=== PATIENT | female | born 1970 | race Two or more races ===

== ENCOUNTER 2020-10-18 15:41 | Outpatient (REF) | payer OTHER, SELFPAY ==
[2020-10-18 16:45] LABS: TSH reflex Free T4 3.16 mIU/mL (0.32-4.0)
== END 2020-10-18 15:42 | disposition home or self-care (01) ==
LOC: HO.LAB 15:41
PROVIDERS: PCP Internal Medicine; Visit Provider Internal Medicine
DX: R63.4 Abnormal weight loss (principal)
CPT/HCPCS: 84443

== ENCOUNTER 2020-10-28 18:02 | Outpatient (REF) | payer OTHER, SELFPAY | END 2020-10-28 18:03 | disposition home or self-care (01) | LOC: HO.MRI 18:02 | PROVIDERS: Visit Provider Internal Medicine | DX: Z13.89 Encounter for screening for other disorder (principal) ==

== ENCOUNTER → 2020-11-12 08:12 | Outpatient (BNVA) | payer OTHER, SELFPAY | PROVIDERS: PCP Internal Medicine; Visit Provider Physician Assistant | DX: Z76.89 Persons encountering health services in other specified circumstances (principal) ==

== ENCOUNTER → 2020-12-11 10:24 | Outpatient (BNVA) | payer OTHER, SELFPAY | PROVIDERS: PCP Internal Medicine; Visit Provider Hospitalist ==

== ENCOUNTER 2020-12-26 14:26 | Outpatient (REF) | payer OTHER, SELFPAY | END 2020-12-26 14:27 | disposition home or self-care (01) | LOC: HO.MDS 14:26 | PROVIDERS: PCP Internal Medicine; Visit Provider Hospitalist | DX: J45.50 Severe persistent asthma, uncomplicated (principal) | CPT/HCPCS: 96372; J0517 ==

== ENCOUNTER → 2021-01-17 15:00 | Outpatient (BNVA) | payer OTHER, SELFPAY | PROVIDERS: PCP Internal Medicine; Visit Provider Hospitalist ==

== ENCOUNTER 2021-01-23 13:59 | Outpatient (REF) | payer OTHER, SELFPAY | END 2021-01-23 14:00 | disposition home or self-care (01) | LOC: HO.MDS 13:59 | PROVIDERS: PCP Internal Medicine; Visit Provider Hospitalist | DX: J45.50 Severe persistent asthma, uncomplicated (principal) | CPT/HCPCS: 96372; J0517 ==

== ENCOUNTER 2021-02-11 13:01 | Emergency (ER) | payer OTHER, SELFPAY ==
--- NOTE | ~2021-02-11 | US_ITS ---
EXAMINATION: US VENOUS ULTRASOUND WITH DOPPLER LOWER EXTREMITY, BILATERAL CLINICAL INFORMATION: Bilateral lower extremity pain COMPARISON: Right leg DVT study 05/12/2018 TECHNIQUE: Ultrasound of the deep veins is performed from the hip to the calf with compression sonography and color and pulse Doppler assessment. Spectral analysis with color-flow imaging is performed. FINDINGS: RIGHT: There is normal venous compression and respiratory variation and augmented flow. The visualized common femoral vein, superficial femoral vein, profunda femoral vein, popliteal vein, and the trifurcation region shows no evidence of deep venous thrombosis. There is no significant popliteal fossa cyst. LEFT: There is normal venous compression and respiratory variation and augmented flow. The visualized common femoral vein, superficial femoral vein, profunda femoral vein, popliteal vein, and the trifurcation region shows no evidence of deep venous thrombosis. There is no significant popliteal fossa cyst. If the patient's symptoms persist, followup ultrasound in 5 days 7 days might be of value to exclude proximal propagation from a non-visualized calf vein. US/US venous duplex LE BI IMPRESSION: No DVT demonstrated in either lower extremity.
[2021-02-11 13:38] VITALS: BP 158/81; PULSE 70; RESP 16; TEMP 37; O2SAT 99; BMI 42.0
--- NOTE | 2021-02-11 17:08 | ED_ITS ---
HPI - General Adult General Chief complaint: General Medical Stated complaint: QUES ALLERGIC REACTION Source: patient Mode of arrival: ambulatory Limitations: no limitations History of Present Illness HPI narrative: Patient presents to ED for body aches/turning aches since receiving the COVID vaccine 6 days ago. Patient states she received a Guillermo Guillermo vaccine. Patient then states the past 2 days she started having left calf pain so patient was sent to the ED for referral. Patient denies any chest pain, shortness of breath, coughing up blood, swelling of lower extremity, or dizziness. Related Data Home Medications Medication Instructions Recorded Confirmed albuterol sulfate 90 mcg/actuation 2 puff INHALATION Q6H PRN 09/05/20 01/06/21 aerosol inhaler fluticasone 100 mcg-salmeterol 50 1 inh INHALATION BID 09/05/20 01/06/21 mcg/dose blistr powdr for inhalation montelukast 10 mg tablet 10 mg PO DAILY 09/05/20 01/17/21 omeprazole 20 mg capsule,delayed 20 mg PO DAILY 09/05/20 01/17/21 release cetirizine 10 mg tablet 10 mg PO DAILY 09/25/20 01/17/21 epinephrine 0.3 mg/0.3 mL IM DIRECTED 09/25/20 01/17/21 injection, auto-injector ipratropium 20 mcg-albuterol 100 1 puff INHALATION Q6H 09/25/20 01/17/21 mcg/actuation mist for inhalation citalopram 40 mg tablet 40 mg PO DAILY 10/10/20 01/17/21 pseudoephedrine HCl 30 mg tablet mg PO 10/10/20 01/17/21 lisinopril 5 mg tablet 5 mg PO DAILY 11/05/20 01/17/21 flu vacc [id number] 6mos up(PF) ml IM 12/11/20 01/17/21 progesterone micronized 200 mg mg PO 12/11/20 01/06/21 capsule Previous Rx's Medication Instructions Recorded benralizumab 30 mg/mL subcutaneous 30 mg SUBCUT Q8W #1 ml 08/06/20 syringe gabapentin 300 mg capsule 300 mg PO BEDTIME 30 Days #30 cap 09/25/20 valacyclovir 1 gram tablet 1,000 mg PO TID 10 Days #30 tab 09/25/20 ascorbate calcium (vitamin C) 500 500 mg PO DAILY 30 Days #30 tab 10/10/20 mg tablet ferrous sulfate 325 mg (65 mg 325 mg PO DAILY 30 Days #30 tab 10/10/20 iron) tablet,delayed release amoxicillin 500 mg tablet 500 mg PO BID 7 Days #14 tab 10/14/20 doxycycline hyclate 100 mg 100 mg PO BID 5 Days #10 tab 10/14/20 tablet,delayed release albuterol sulfate 90 mcg/actuation 2 inh INHALATION Q6H PRN 30 Days 10/29/20 breath activated powder inhaler #1 ea fluticasone 250 mcg-salmeterol 50 1 inh INHALATION Q12H 30 Days #60 10/29/20 mcg/dose blistr powdr for ea inhalation triamcinolone acetonide 0.1 % 1 appl TOPICAL BID 14 Days #30 g 11/04/20 topical cream acetaminophen 300 mg-codeine 30 mg 1 tab PO Q6H PRN 30 Days #120 tab 11/06/20 tablet pramipexole 0.125 mg tablet 0.125 mg PO BEDTIME #30 tab 11/06/20 bisacodyl 5 mg tablet,delayed 5 mg PO ONCE 1 Days #2 tab 11/11/20 release oxybutynin chloride 5 mg tablet 5 mg PO BID #60 tab 11/11/20 varicella-zoster glycoE [id number] 0.5 ml IM ONCE 1 Days #1 ea 11/20/20 adj(PF) 50 mcg/0.5 mL IM susp, kit tizanidine 4 mg tablet 4 mg PO TID PRN 90 Days #270 tab 11/21/20 fluticasone 500 mcg-salmeterol 50 1 inh INHALATION Q12H 30 Days #60 12/11/20 mcg/dose blistr powdr for ea inhalation tiotropium bromide 2.5 2 puff INHALATION BEDTIME 30 Days 12/11/20 mcg/actuation mist for inhalation #4 g fluticasone propionate 50 1 spray INTRANASAL DAILY #16 ml 12/17/20 mcg/actuation nasal spray,suspension alprazolam 1 mg tablet 1 mg PO BID PRN 28 Days #56 tab 01/06/21 prednisone 5 mg tablet 5 mg PO BID 30 Days #60 tab 01/06/21 azithromycin 500 mg tablet 500 mg PO DAILY 3 Days #3 tab 01/17/21 dextromethorphan-guaifenesin 5 10 ml PO Q6H PRN 14 Days #355 ml 01/17/21 mg-100 mg/5 mL oral liquid prednisone 20 mg tablet 20 mg PO DAILY 10 Days #10 tab 01/17/21 lisinopril 5 mg tablet 5 mg PO DAILY #30 tab 01/24/21 Allergies Allergy/AdvReac Type Severity Reaction Status Date / Time tramadol [TRAMADOL] Allergy Intermediate ITCHINESS, Verified 01/17/21 15:08 pruritus fentanyl Allergy Unknown unknown Verified 01/17/21 15:08 ketamine Allergy Unknown weakness Verified 01/17/21 15:08 nut - unspecified [nut] Allergy Unknown SWELLING/RA Verified 01/17/21 15:08 SH propofol Allergy Unknown weakness Verified 01/17/21 15:08 rocuronium Allergy Unknown weakness Verified 01/17/21 15:08 ibuprofen AdvReac Unknown upset Verified 01/23/21 14:03 stomach ketorolac AdvReac Unknown nauseas,vomiting, Verified 01/23/21 14:03 nausea, vomiting dust, pollens, grass Allergy Unknown asthma Uncoded 01/17/21 15:08 SEASONAL ALLERGIES Allergy Unknown ITCHY EYES Uncoded 01/17/21 15:08 From TORADOL AdvReac Unknown PALPITAIONS Uncoded 01/17/21 15:08 Review of Systems Review of Systems: Yes all other systems are reviewed and are negative Constitutional: Constitutional: Reports as per HPI, Reports no additional constitutional complaints, Reports body ache(s) and Reports headache(s) Eyes: Eyes: Reports as per HPI and Reports no additional eye complaints ENT: Reports system reviewed and no additional complaints, except as documented, Reports as per HPI and Reports headache(s) Cardiovascular: Cardiovascular: Reports as per HPI and Reports no additional cardiovascular complaints Respiratory: Respiratory: Reports as per HPI and Reports no additional respiratory complaints Gastrointestinal: Gastrointestinal: Reports as per HPI and Reports no additional gastrointestinal complaints Genitourinary: Genitourinary: Reports no additional female genitourinary complaints and Reports as per HPI Musculoskeletal: Musculoskeletal: Reports no additional musculoskeletal complaints and Reports as per HPI Comments: Left calf pain Neurologic: Reports system reviewed and no additional complaints, except as documented, Reports as per HPI and Reports headache(s) Psychiatric: Psychiatric: Reports no additional psychiatric complaints and Reports as per HPI PMFSH Past Medical History Medical History Asthma Chronic allergic rhinitis Depression with anxiety Essential hypertension GERD (gastroesophageal reflux disease) Herpes zoster Lumbar degenerative disc disease Migraines Postherpetic neuralgia Rash Restless leg syndrome Screen for colon cancer Unexplained weight loss Urge urinary incontinence Surgical History H/O tubal ligation Family History Family History Father Diabetes Mother Hypertension Maternal Grandfather Prostate cancer Paternal Aunt Cancer Family/Other FH: mental illness Social History Social History Alcohol intake: never Smoking Status: Never smoker Use of substances other than those prescribed or required for medical reasons: No Advance Directives: No Advance Directives Information Provided: No Current occupational status: unemployed Physical Exam Vital Signs: Vital Signs: Last Vital Signs Temp 98.6 F 02/11/21 13:38 Pulse 65 02/11/21 17:46 Resp 16 02/11/21 17:46 BP 156/103 H 02/11/21 17:46 Pulse Ox 100 02/11/21 17:46 Body Mass Index 42.0 Const: General: cooperative, healthy appearing, comfortable, no acute distress, well developed, alert and awake Orientation/consciousness: patient oriented x3 HENMT: Head: Yes normal to inspection, Yes No palpable skull fracture present, Yes normocephalic and Yes atraumatic Eyes: General: appearance normal, both eyes and all related structures Neck: Neck: Yes normal visual inspection, Yes full ROM, Yes no lymphadenopathy, Yes no meningeal signs, Yes trachea midline, Yes supple and No tender Chest: Chest palpation & inspection: normal inspection of the chest and normal palpation of entire chest wall Resp: Effort & Inspection: normal respiratory effort and able to speak in complete sentences Cardio: Jugular venous distension: no JVD Heart sounds: S1 normal heart sound present and S2 normal heart sound present GI: Inspection: Yes normal to inspection and No abdominal wall ecchymosis Palpation (GI): Soft to palpation, not firm, nontender, no guarding and not rigid : General: No CVA tenderness and Yes no CVA tenderness Back/Spine/Pelvis: Back: no CVA tenderness, No CVA tenderness and No back tenderness Skin: Other: Negative for any ecchymosis or petechia General skin exam: no rashes or lesions noted and elasticity normal Neuro: General: patient oriented x3, no meningeal signs and CN's II-XI intact bilaterally Cranial nerves: Yes CN's II-XII intact bilaterally Extrem: Other: Lower extremities bilaterally: Negative for any redness, swelling, calf tenderness, ecchymosis, or crepitus. Vascular/neuro/motor exam intact of lower extremities intact. General: Yes normal to inspection and Yes full ROM Psych: Appearance: grossly normal, well kempt and not disheveled Course Course Course Narrative: Due to patient stating calf pain and recent JJ vaccination done 6 days ago. Patient will be sent for ultrasound to rule out DVT of lower extremities. Nurse already ordered basic labs. Physical exam does not indicate signs of meningitis. Reevaluation(s) Reevaluation #1: Patient labs came back normal. Bilateral ultrasound on lower extremity came back negative for DVT. Patient is safe for discharge. Medical Decision Making MDM Narrative Medical decision making narrative: Myalgia due to vaccination Lab Data Result diagrams: 02/11/21 17:02 02/11/21 17:02 Labs: Lab Results 02/11/21 02/11/21 02/11/21 Range/Units 17:02 17:02 17:02 WBC 5.2 (4.8-10.8) X10*3/uL RBC 4.55 (4.20-5.50) X10*6/uL Hgb 13.2 (12.0-16.0) g/dl Hct 41.4 (37-47) % MCV 91.0 (80-98) fL MCH 29.0 (27.0-33.0) pg MCHC 31.9 (31.0-35.0) g/dl RDW 11.9 (11.0-16.0) % Plt Count 266 (160-400) X10*3/uL MPV 12.2 (9.4-12.3) fL Absolute Nucleated RBC 0.000 (0.0-0.012) X10*3/uL Nucleated RBC % (auto) 0.0 (0.0-0.2) /100WBC Hold Purple Top D-Dimer < 200 NG/ML Hold Blue Top Sodium 138 (135-145) mmol/L Potassium 4.2 (3.3-5.1) mmol/L Chloride 103 (96-108) mmol/L Carbon Dioxide 26 (22-29) mmol/L Anion Gap 13 (12-20) BUN 21 H (9-16) mg/dL Creatinine 0.83 (0.5-1.4) mg/dL Estim Creat Clear Calc 91.9 Estimated GFR > 60 Random Glucose 110 (60-115) mg/dL Calcium 9.7 (8.4-10.2) mg/dL COVID-19 ([facility]) (Negative) COVID-19 [employer] 02/11/21 02/11/21 02/11/21 Range/Units 17:02 17:02 19:30 WBC (4.8-10.8) X10*3/uL RBC (4.20-5.50) X10*6/uL Hgb (12.0-16.0) g/dl Hct (37-47) % MCV (80-98) fL MCH (27.0-33.0) pg MCHC (31.0-35.0) g/dl RDW (11.0-16.0) % Plt Count (160-400) X10*3/uL MPV (9.4-12.3) fL Absolute Nucleated RBC (0.0-0.012) X10*3/uL Nucleated RBC % (auto) (0.0-0.2) /100WBC Hold Purple Top SEE NOTE D-Dimer NG/ML Hold Blue Top SEE NOTE Sodium (135-145) mmol/L Potassium (3.3-5.1) mmol/L Chloride (96-108) mmol/L Carbon Dioxide (22-29) mmol/L Anion Gap (12-20) BUN (9-16) mg/dL Creatinine (0.5-1.4) mg/dL Estim Creat Clear Calc Estimated GFR Random Glucose (60-115) mg/dL Calcium (8.4-10.2) mg/dL COVID-19 ([facility]) Negative (Negative) COVID-19 Clin Com See Note Discharge Plan Discharge Clinical Impression: Myalgia after COVID-19 vaccination Patient Disposition: Home, Self-Care Instructions: Musculoskeletal Pain (ED) Additional Instructions: Return return to the ED immediately for any swelling of lips, sensation of throat closing, shortness of breath, chest pain, swelling of lower extremities, calf pain, coughing up blood, weakness, passing out, dizziness, fever, or chills. Your blood work came back normal. Ultrasound came back negative for any blood clots in either leg. Ultrasound came back negative for blood clots. Labs came back normal Prescriptions: No Action Fasenra 30 mg/mL syringe 30 mg subcut Q8W Qty: 1 RF: 0 amoxicillin 500 mg tablet 500 mg PO BID 7 Days Qty: 14 RF: 0 ProAir RespiClick 90 mcg/actuation aerosol powdr breath activated 2 inh inhalation Q6H PRN (Reason: shortness of breath or wheezing) 30 Days Qty: 1 RF: 11 fluticasone propion-salmeterol [Advair Diskus] 250-50 mcg/dose blister with device 1 inh inhalation Q12H 30 Days Qty: 60 RF: 11 triamcinolone acetonide 0.1 % cream 1 appl topical BID 14 Days Qty: 30 RF: 5 lisinopril 5 mg tablet 5 mg PO DAILY RF: 0 pramipexole 0.125 mg tablet 0.125 mg PO BEDTIME Qty: 30 RF: 6 acetaminophen-codeine 300-30 mg tablet 1 tab PO Q6H PRN (Reason: pain) 30 Days Qty: 120 RF: 0 oxybutynin chloride 5 mg tablet 5 mg PO BID Qty: 60 RF: 3 Shingrix (PF) 50 mcg/0.5 mL suspension for reconstitution 0.5 ml IM ONCE 1 Days Qty: 1 RF: 0 tizanidine 4 mg tablet 4 mg PO TID PRN (Reason: muscle spasticity) 90 Days Qty: 270 RF: 1 fluticasone propionate 50 mcg/actuation spray,suspension 1 spray intranasal DAILY Qty: 16 RF: 6 lisinopril 5 mg tablet 5 mg PO DAILY Qty: 30 RF: 6 doxycycline hyclate 100 mg tablet,delayed release (DR/EC) 100 mg PO BID 5 Days Qty: 10 RF: 0 cetirizine 10 mg tablet 10 mg PO DAILY RF: 0 epinephrine 0.3 mg/0.3 mL auto-injector IM DIRECTED RF: 0 Combivent Respimat 20-100 mcg/actuation mist 1 puff inhalation Q6H RF: 0 valacyclovir 1 gram tablet 1,000 mg PO TID 10 Days Qty: 30 RF: 0 gabapentin 300 mg capsule 300 mg PO BEDTIME 30 Days Qty: 30 RF: 6 citalopram 40 mg tablet 40 mg PO DAILY RF: 0 pseudoephedrine HCl 30 mg tablet PO RF: 0 ascorbate calcium (vitamin C) 500 mg tablet 500 mg PO DAILY 30 Days Qty: 30 RF: 4 ferrous sulfate 325 mg (65 mg iron) tablet,delayed release (DR/EC) 325 mg PO DAILY 30 Days Qty: 30 RF: 3 alprazolam 1 mg tablet 1 mg PO BID PRN (Reason: anxiety) 28 Days Qty: 56 RF: 0 prednisone 5 mg tablet 5 mg PO BID 30 Days Qty: 60 RF: 1 albuterol sulfate [Ventolin HFA] 90 mcg/actuation HFA aerosol inhaler 2 puff inhalation Q6H PRNRF: 0 fluticasone propion-salmeterol [Wixela Inhub] 100-50 mcg/dose blister with device 1 inh inhalation BID RF: 0 montelukast [Singulair] 10 mg tablet 10 mg PO DAILY RF: 0 omeprazole 20 mg capsule,delayed release(DR/EC) 20 mg PO DAILY RF: 0 Fluzone Quad (PF) 60 mcg (15 mcg x 4)/0.5 mL syringe IM RF: 0 progesterone micronized 200 mg capsule PO RF: 0 fluticasone propion-salmeterol [Advair Diskus] 500-50 mcg/dose blister with device 1 inh inhalation Q12H 30 Days Qty: 60 RF: 11 Spiriva Respimat 2.5 mcg/actuation mist 2 puff inhalation BEDTIME 30 Days Qty: 4 RF: 11 bisacodyl [Dulcolax (bisacodyl)] 5 mg tablet,delayed release (DR/EC) 5 mg PO ONCE 1 Days Qty: 2 RF: 0 prednisone 20 mg tablet 20 mg PO DAILY 10 Days Qty: 10 RF: 0 azithromycin 500 mg tablet 500 mg PO DAILY 3 Days Qty: 3 RF: 0 Robitussin Cough-Chest Qamar DM 5-100 mg/5 mL liquid 10 ml PO Q6H PRN (Reason: cough) 14 Days Qty: 355 RF: 3 Referrals: Maricarmen Hammonds MD [Primary Care Provider] - 2 days (Ultrasound negative for blood clots of lower extremities. Labs are normal.) Interventions: ED Discharge Assessment Last Done: 02/11/21 20:24 Discharge Date/Time: 02/11/21 20:24 Print Language: Somali
[2021-02-11 17:18] LABS: Hematocrit 41.4 % (37-47); Hemoglobin 13.2 g/dl (12.0-16.0); Mean Corpuscular HGB Conc 31.9 g/dl (31.0-35.0); Mean Platelet Volume 12.2 fL (9.4-12.3); Platelet Count 266 X10*3/uL (160-400); Red Blood Count 4.55 X10*6/uL (4.20-5.50); Red Cell Distribution Width 11.9 % (11.0-16.0); White Blood Count 5.2 X10*3/uL (4.8-10.8)
[2021-02-11 17:31] LABS: D Dimer < 200 NG/ML
--- NOTE | 2021-02-11 17:32 | PC.NURSE ---
unlabored resp. skin pwd. no swelling or tenderness noted LLE. no redness. pt denies hx smoking, OBC, or prolonged sedentary position. aware of plan for u/s
[2021-02-11 17:34] LABS: Anion Gap 13 (12-20); Blood Urea Nitrogen 21 mg/dL (9-16); Calcium 9.7 mg/dL (8.4-10.2); Carbon Dioxide 26 mmol/L (22-29); Chloride 103 mmol/L (96-108); Creatinine Clr Calc Pharmacy 91.9; Estimated Glomerular Filt Rate > 60; Glucose Random 110 mg/dL (60-115); Potassium 4.2 mmol/L (3.3-5.1); Sodium 138 mmol/L (135-145)
[2021-02-11 17:46] VITALS: BP 156/103; PULSE 65; RESP 16; O2SAT 100
[2021-02-11 20:06] LABS: COVID-19 Test Negative (Negative)
== END 2021-02-11 20:24 | disposition home or self-care (01) ==
PROVIDERS: Physician Assistant; Emergency Provider Emergency Medicine; PCP Internal Medicine
DX: M79.662 Pain in left lower leg (principal); M79.10 Myalgia, unspecified site; T50.B95A Adverse effect of other viral vaccines, initial encounter; Y92.019 Unspecified place in single-family (private) house as the place of occurrence of the external cause; Z20.822 Contact with and (suspected) exposure to COVID-19
CPT/HCPCS: 36415; 80048; 85027; 85379; 87635; 93970; 99284

== ENCOUNTER 2021-02-20 13:12 | Outpatient (REF) | payer OTHER, SELFPAY | END 2021-02-20 13:13 | disposition home or self-care (01) | LOC: HO.MDS 13:12 | PROVIDERS: PCP Internal Medicine; Visit Provider Hospitalist | DX: J45.909 Unspecified asthma, uncomplicated (principal) ==

== ENCOUNTER → 2021-03-07 11:08 | Outpatient (BNVA) | payer OTHER, SELFPAY | PROVIDERS: PCP Internal Medicine; Visit Provider Hospitalist ==

== ENCOUNTER → 2021-03-13 13:42 | Outpatient (BNVA) | payer OTHER, SELFPAY | PROVIDERS: PCP Internal Medicine; Referring Provider Internal Medicine; Visit Provider Nurse Practitioner Family ==

== ENCOUNTER → 2021-03-17 12:52 | Outpatient (BNVA) | payer OTHER, SELFPAY | PROVIDERS: PCP Internal Medicine; Visit Provider Hospitalist | DX: Z71.89 Other specified counseling (principal) | CPT/HCPCS: 99211 ==

== ENCOUNTER 2021-04-23 09:23 | Outpatient (REF) | payer OTHER, SELFPAY ==
[2021-04-23 10:47] LABS: Alanine Aminotransferase 7 U/L (0-31); Alkaline Phosphatase 57 U/L (39-117); Aspartate Amino Transferase 15 U/L (5-31); Bilirubin Direct 0.2 mg/dL (0.0-0.5); Bilirubin Total 0.6 mg/dL (0.0-1.0); Total Protein 6.6 g/dL (6.5-8.0)
== END 2021-04-23 09:24 | disposition home or self-care (01) ==
LOC: HO.10HDL 09:23
PROVIDERS: Visit Provider Nurse Practitioner Family
DX: Z12.11 Encounter for screening for malignant neoplasm of colon (principal); K21.9 Gastro-esophageal reflux disease without esophagitis
CPT/HCPCS: 36415; 80076; 87338

== ENCOUNTER → 2021-06-20 10:31 | Outpatient (BNVA) | payer OTHER, SELFPAY | PROVIDERS: PCP Internal Medicine; Visit Provider Nurse Practitioner Family ==